=== PATIENT | female | born 1970 | race African-American/Black ===

== ENCOUNTER 2019-12-17 04:53 | Day surgery (SDC) | payer OTHER ==
[2019-12-14 16:46] VITALS: BMI 27.6
[2019-12-17] MEDS ORDERED: BUPIVACAINE LIPOSOME/PF (EXPAREL) 266 MG/20 ML VIAL ONE (07:20)
[2019-12-17] MEDS ORDERED: BUPIVACAINE HCL/PF 0.25% (2.5MG/ML) 10 ML VIAL ONE (07:20)
[2019-12-17] MEDS ORDERED: MIDAZOLAM HCL 2 MG/2 ML SINGLE DOSE VIAL ONE ×3 (07:23→08:10)
--- NOTE | 2019-12-17 07:31 | HP ---
Satellite [facility] - Chief Complaint Chief Complaint: right ankle pain - Past Medical History Allergies/Adverse Reactions: Allergies Allergy/AdvReac Type Severity Reaction Status Date / Time No Known Drug Allergies Allergy Verified 12/17/19 06:47 SEASONAL Allergy Uncoded 12/17/19 06:47 ...LMP: 12/07/19 - Current Medications Current Medications: Home Medications Medication Instructions Recorded Amlodipine Besylate [Norvasc -] 5 mg PO DAILY 12/14/19 Cabergoline 0.5 mg PO WEEKLY 12/14/19 Satellite Physical Exam - Physical Examination Vital Signs: Vital Signs Period Temp Pulse Resp BP Sys/Doran Pulse Ox Last 24 Hr 97.0 F 76 18 130/87 99 General Appearance: Well Nourished, Well Developed, Alert & Oriented x3 ENT: Clear Lung: Normal air movement Extremities: Other (right ankle- + swelling, + ecchymosis, + palpable defect over achilles, +yee, nvi) Neurological: Intact, Alert, Oriented Satellite Impression/Plan - Impression/Plan Impression: right achilles tendon rupture Operative Procedure: right achilles tendon repair Date to be Performed: 12/17/19
[2019-12-17] MEDS ORDERED: ceFAZolin SODIUM 1 GM VIAL ONE (08:07)
[2019-12-17] MEDS ORDERED: ceFAZolin 2 GRAM PREMIX BAG IVPB ONE (08:08)
--- NOTE | 2019-12-17 08:52 | OP ---
Operative Note - Note: Operative Date: 12/17/19 [facility]) Pre-Operative Diagnosis: right achilles tendon rupture Operation: right achilles tendon repair Implants: 2 swivelock anchors Post-Operative Diagnosis: Same as Pre-op Surgeon: Bernabe Mayer Linen Sorter: Gregory Matos Anesthesiologist/FOOD SERVICES MANAGER: Geovanna Colin Anesthesia: Spinal, Local Estimated Blood Loss (mls): 5
[2019-12-17] MEDS ORDERED: ONDANSETRON 4 MG/2 ML VIAL IVPUSH PRN (08:58)
[2019-12-17] MEDS ORDERED: oxyCODONE HCL 5 MG TABLET PO PRN (08:58)
[2019-12-17] MEDS ORDERED: CEFAZOLIN 1 GM in DEXTROSE 5%-WATER - 50 ML IVPB ONE (09:00)
[2019-12-17] MEDS ORDERED: LACTATED RINGERS SOLUTION 1,000 ML IV SCH (09:00)
[2019-12-17 10:23] VITALS: TEMP 97
--- NOTE | 2019-12-17 14:57 | OP ---
DATE OF OPERATION: 12/17/2019 PREOPERATIVE DIAGNOSIS: Right Achilles tendon rupture. POSTOPERATIVE DIAGNOSIS: Right Achilles tendon rupture. PROCEDURE: Right Achilles tendon repair. SURGICAL ATTENDING: Bernabe Mayer MD ASSET MANAGER: LOU Lott ANESTHESIA: Regional and spinal. CLOSURE: Arthrex Achilles tendon anchors and suture tape and temi for skin and 2-0 Vicryl subcutaneous. ESTIMATED BLOOD LOSS: Negligible. COMPLICATIONS: None. CONDITION: To recovery room in stable condition. DESCRIPTION OF OPERATIVE PROCEDURE: Patient was taken to the operating room on December 17, 2019. Spinal and regional anesthesia was administered by the anesthesiologist. IV Kefzol was administered prophylactically prior to the case. Patient was placed in the prone position with all prominences well padded. The right lower extremity was prepped and draped in the usual sterile fashion. A 3 to 4 cm longitudinal incision over the watershed area of the Achilles was performed full thickness down to the level of the tendon. was delivered out of the incision and mobilized proximally. A suture tape was weaved in the baseball fashion up and down the sides of the tendon x2. Two stab incisions were made at the Achilles calcaneal junction, one medial and one laterally. Two drill holes for the SwiveLock anchors were drilled into place. A SutureLasso was placed through these stab incisions through the distal stump of the Achilles exiting the incision and the sutures from the proximal stump were delivered through these, exiting the 2 distal incisions, two medially and two laterally. Both of these were fixated with SwiveLock anchors to the calcaneus with the calcaneus held in an equinus position. Sutures were then cut snug. Excellent tension was obtained of the repair. Closed with Vicryl 2-0 subcutaneous and temi to the skin. A sterile equinus splint was applied. Patient was awakened from anesthesia and transferred to recovery room in stable condition. No complications. Estimated blood loss negligible. Marc ROBLES/[id number]
[2019-12-17 18:36] VITALS: BP 117/73; PULSE 77
== END 2019-12-17 15:00 | disposition home or self-care (01) ==
LOC: JASU-SURG 04:53
PROVIDERS: ATTEND Orthopaedic Surgery
PROC: 0LQN0ZZ Repair Right Lower Leg Tendon, Open Approach (ICD-10-PCS; principal; 2019-12-17 07:30)
DX: S86.011A Strain of right Achilles tendon, initial encounter (principal); X58.XXXA Exposure to other specified factors, initial encounter; Y93.9 Activity, unspecified; Y92.9 Unspecified place or not applicable; Y99.9 Unspecified external cause status
CPT/HCPCS: 84703; 94760; 97116-GP

== ENCOUNTER 2023-04-22 04:16 | Day surgery (SDC) | payer OTHER ==
[2023-04-20 13:23] VITALS: BMI 31.7
[2023-04-22 08:27] VITALS: TEMP 97.2
[2023-04-22 08:38] VITALS: RESP 18
[2023-04-22 09:08] VITALS: BP 131/87; PULSE 85
== END 2023-04-22 09:17 | disposition home or self-care (01) ==
LOC: JASU-ENDO 04:16
PROVIDERS: ATTEND Internal Medicine Gastroenterology
PROC: 0DB98ZX Excision of Duodenum, Via Natural or Artificial Opening Endoscopic, Diagnostic (ICD-10-PCS; 2023-04-22)
PROC: 0DB78ZX Excision of Stomach, Pylorus, Via Natural or Artificial Opening Endoscopic, Diagnostic (ICD-10-PCS; 2023-04-22)
PROC: 0DB68ZX Excision of Stomach, Via Natural or Artificial Opening Endoscopic, Diagnostic (ICD-10-PCS; 2023-04-22)
PROC: 0DB28ZX Excision of Middle Esophagus, Via Natural or Artificial Opening Endoscopic, Diagnostic (ICD-10-PCS; 2023-04-22)
PROC: 0DB38ZX Excision of Lower Esophagus, Via Natural or Artificial Opening Endoscopic, Diagnostic (ICD-10-PCS; 2023-04-22)
PROC: 0DJD8ZZ Inspection of Lower Intestinal Tract, Via Natural or Artificial Opening Endoscopic (ICD-10-PCS; principal; 2023-04-22 08:00)
DX: Z12.11 Encounter for screening for malignant neoplasm of colon (principal); K64.8 Other hemorrhoids; K57.30 Diverticulosis of large intestine without perforation or abscess without bleeding; K21.00 Gastro-esophageal reflux disease with esophagitis, without bleeding
CPT/HCPCS: 88305-TC; 88342-TC